=== PATIENT | female | born 1950 | race American Indian/Alaskan Native ===

== ENCOUNTER 2016-12-16 06:31 | Observation (INO) | payer MEDICARE ==
--- NOTE | 2016-12-11 10:01 | Anesthesia Consultation ---
Anesthesia Consult and Med Hx Date of service: 12/16/06 - Airway Anesthetic Teeth Evaluation: Good, Bridges ROM Head & Neck: Adequate Mental/Hyoid Distance: Adequate Mallampati Class: Class III Intubation Access Assessment: Possibly Difficult - Pulmonary Exam CTA: Yes - Cardiac Exam Cardiac Exam: RRR - Pre-Operative Health Status ASA Pre-Surgery Classification: ASA3 Proposed Anesthetic Plan: Epidural, Spinal Nerve Block: Femoral - Pulmonary Hx Smoking: Yes (STOPPED 2002 -02/16 PPD X 20 YRS) Hx Sleep Apnea: Yes (DX SLEEP APNEA WITH CPAP USE.) - Cardiovascular System Hx Hypertension: Yes (2003) Hx Cardia Arrhythmia: Yes (Palpitations, enlarged heart from HTN) - Central Nervous System Hx Psychiatric Problems: Yes (Anxiety/Depression) - Hematic Hx Anemia: Yes (NOT RECENT) - Other Systems Hx Cancer: No Hx Obesity: Yes
[2016-12-11 10:11] LABS: Basophils % (Auto) 0.6 % (0.0-1.8); Eosinophils # (Auto) 0.3 K/mm3 (0.0-0.4); Eosinophils % (Auto) 3.6 % (0.0-4.3); Hematocrit 40.1 % (30.3-42.9); Hemoglobin 13.1 gm/dl (10.1-14.3); Lymphocytes # (Auto) 2.4 K/mm3 (1.2-5.4); Lymphocytes % (Auto) 33.2 % (13.4-35.0); Mean Corpuscular HGB Conc 33 % (30-34); Mean Corpuscular Hemoglobin 29 pg (28-32); Mean Corpuscular Volume 90 fl (79-97); Monocytes # (Auto) 0.5 K/mm3 (0.0-0.8); Monocytes % (Auto) 7.6 % (0.0-7.3); Platelet Count 275 K/mm3 (140-440); Red Blood Count 4.46 M/mm3 (3.65-5.03); Red Cell Distribution Width 13.3 % (13.2-15.2)
[2016-12-11 10:21] LABS: Bacteria,Urine 1+ /HPF (Negative); Bilirubin,Urine NEG (Negative); Blood,Urine NEG (Negative); Color,Urine Yellow (Yellow); INR 0.94 (0.87-1.13); Mucus,Urine FEW /HPF; Nitrite,Urine NEG (Negative); Protein,Urine <15 mg/dL mg/dL (Negative); Urobilinogen,Urine < 2.0 mg/dL (<2.0)
[2016-12-11 10:22] LABS: Partial Thromboplastin Time 30.8 Sec. (24.2-36.6)
[2016-12-11 10:26] LABS: Alanine Aminotransferase 9 units/L (7-56); Albumin 4.6 g/dL (3.9-5); BUN/Creatinine Ratio 21; Blood Urea Nitrogen 15 mg/dL (7-17); Calcium 9.1 mg/dL (8.4-10.2); Hemolysis Index 8
[~2016-12-16 06:31] MED LIST: MARCAINE 0.5% INFILTRATI ONE; NACL 0.9% 1000 ML 1,000 ML IV SCH; NEOSPORIN GU IR ONE; VERSED IV NR
[2016-12-16] MEDS ORDERED: NACL BACTERIOSTATIC INFILTRATI ONE (06:54)
[2016-12-16] MEDS ORDERED: ANCEF/STERILE WATER 2 GM/20 ML IV NR (07:00)
[2016-12-16] MEDS ORDERED: MARCAINE 0.5% 30 ML INFILTRATI ONE ×2 (07:13→08:08)
[2016-12-16] MEDS ORDERED: NEOSPORIN GU IR ONE ×2 (07:14→11:13)
[2016-12-16] MEDS ORDERED: DECADRON ONE ×2 (07:42→08:08)
[2016-12-16] MEDS ORDERED: SUBLIMAZE ONE (07:42)
[2016-12-16] MEDS ORDERED: DIPRIVAN 10 MG/ML IV ONE (07:42)
[2016-12-16] MEDS ORDERED: XYLOCAINE MPF 2% ONE (07:42)
[2016-12-16] MEDS ORDERED: ZOFRAN ONE (07:42)
[2016-12-16] MEDS ORDERED: CLONIDINE 1,000 MCG/10 ML VIAL EP ONE (08:08)
[2016-12-16] MEDS ORDERED: XYLOCAINE 1% 20 mL ONE (08:13)
[2016-12-16] MEDS ORDERED: TRANEXAMIC ACID ONE (08:50)
[2016-12-16] MEDS ORDERED: NACL 0.9% 100 ML ONE ×2 (08:51→08:52)
[2016-12-16] MEDS ORDERED: ePHEDrine SULFATE ONE (09:39)
[2016-12-16] MEDS ORDERED: NEO SYNEPHRINE/NS Syringe(OR USE) IV ONE (10:00)
[2016-12-16] MEDS ORDERED: NACL 0.9% 1000 ML 1,000 ML ONE (10:19)
[2016-12-16] MEDS ORDERED: MARCAINE 0.5% INFILTRATI ONE (11:17)
[2016-12-16] MEDS ORDERED: DILAUDID ONE (12:10)
[2016-12-16] MEDS: DILAUDID IV PRN ×6 (12:35→21:33)
[2016-12-16] MEDS ORDERED: ZOFRAN IV PRN (12:40)
[2016-12-16] MEDS ORDERED: AMBIEN PO PRN (12:40)
[2016-12-16] MEDS ORDERED: SODIUM CHLORIDE FLUSH SYRINGE 10 ML IV PRN (12:40)
[2016-12-16] MEDS ORDERED: TYLENOL PO PRN (12:40)
--- NOTE | 2016-12-16 13:51 | Operative Report ---
PREOPERATIVE DIAGNOSES: Right knee with severe degenerative joint disease with lateral compartment collapse deficiency and deformity. POSTOPERATIVE DIAGNOSES: Right knee with severe degenerative joint disease with lateral compartment collapse deficiency and deformity. PROCEDURE PERFORMED: Right total knee replacement - complex utilizing [employer] Triathlon system with cemented size 3 femur, cemented size 4 tibia, 11 mm polyethylene insert, nonresurfaced patella, 7-degree valgus cut with 8 mm distal femoral resection. SURGEON: Nikolay Stark M.D. MANAGER VALUATION: Lazaro Olson M.D. ANESTHESIA: General. ESTIMATED BLOOD LOSS: Minimal. COMPLICATIONS: None. DESCRIPTION OF PROCEDURE: The patient underwent successful induction of anesthesia. Lower extremity was then prepped and draped in usual fashion. Antibiotics and tranexamic acid were pre-administered and she was given an adductor block preoperatively as well. Lower extremity was exsanguinated and tourniquet inflated. A standard midline incision was utilized with medial trivector arthrotomy. Appropriate exposure of the joint was carried out with a midline incision and trivector arthrotomy. The retrosurface was relatively well preserved. Significant scarring was noted tricompartmentally and limited synovectomy was performed to alleviate this. It was not felt resurfacing was required. Attention was turned to the tibiofemoral joint with marked collapse noted laterally including the posterolateral condyle. The intramedullary hank introduced to the femur and standard cuts made. There was some deficiency on the chamfer but otherwise the bone was relatively appropriate but a cemented prosthesis was selected as a result of this. The attention was turned to the tibia with the intramedullary hank introduced with the ACL resected. She had deficiency laterally again. With the standard cuts were made. The gaps were appropriately then balanced meticulously. All excess scar tissue was removed. PCL was preserved. Trial reduction demonstrated full range of motion and excellent stability in flexion and extension with the size implants noted. The wounds were thoroughly irrigated and the implants cemented in place. Again, excellent stability noted, full range of motion on the table with the cemented implants. This was a complex procedure given the extent of her deformity extremely well managed with the prosthesis noted. She had excellent alignment and stability. The wounds were once again irrigated. The arthrotomy reapproximated with Ethibond sutures followed by Vicryl and Monocryl for the subcutaneous tissue and a sterile island dressing applied. The patient was taken to the recovery room in satisfactory condition having tolerated the procedure well. Tourniquet was released prior to wound closure. No significant bleeding encountered. JOB# [id number] RDP/NTS
[2016-12-16] MEDS: ANCEF/NS 1 GM/50 ML 1 GM/50 ML BAG IV SCH ×2 (15:57→22:46)
--- NOTE | 2016-12-16 19:59 | Consultation ---
History of Present Illness - Reason for Consult Consult date: 12/16/16 medical management Requesting physician: LAN SOSA - History of Present Illness History of present illness:65-year-old -Mauritian female with past medical history of hypertension, degenerative joint disease and vitamin D deficiency admitted for right total knee arthroplasty. Patient had the procedure this morning. Postop patient doing very well. No complications. Eating by herself. Pain is well controlled. No shortness of breath. No palpitations. Review of System: Constitutional: no fever, no chills, no weight loss Ears, eyes, nose, mouth and throat: no nasal congestion, no nasal discharge, no sinus pressure, no vision change, no red eye. Neck: No neck pain or rigidity. Cardiovascular: No chest pain, no orthopnea, no palpitations, no leg swelling Respiratory: No shortness of breath, no cough, no congestion, no wheezing Gastrointestinal: no abdominal pain, no nausea, no vomiting Genitourinary : no dysuria, no hematuria Musculoskeletal: no joint swelling or muscle ache Integumentary: no rash, no pruritis Neurological: no parathesias, no numbness, no tingling Endocrine: no cold or heat intolerance, no polyuria or polydipsia Hematologic/Lymphatic: no easy bruising, no easy bleeding, no gland swelling Allergic/Immunologic: no urticaria, no angioedema. Past History Past Medical History: arthritis, hypertension, other (Y Merlin D deficiency, depression) Past Surgical History: total knee replacement Social history: no significant social history, lives with family, full code Family history: hypertension Medications and Allergies Allergies Allergy/AdvReac Type Severity Reaction Status Date / Time latex Allergy Swelling Verified 10/22/16 10:41 peanut Allergy Rash Verified 10/20/16 17:08 Beef Containing Products AdvReac Diarrhea Verified 10/20/16 17:08 Home Medications Medication Instructions Recorded Confirmed Last Taken Type Calcium Carbonate [Calcium] 1,500 mg PO DAILY 10/22/16 12/16/16 10/21/16 09:00 History Carvedilol [Coreg] 6.25 mg PO BID 10/22/16 12/16/16 12/16/16 04:30 History Celecoxib [celeBREX] 200 mg PO BID 10/22/16 12/16/16 12/16/16 04:30 History Cholecalciferol Vit D3 [Vitamin D3] 1,000 unit PO QDAY 10/22/16 12/16/16 09:00 History Desipramine HCl [Norpramin] 25 mg PO PRN PRN 10/22/16 12/08/16 10/14/16 09:00 History Multivit-Minerals/Folic Acid 80 mcg PO DAILY 10/22/16 12/08/16 10/21/16 09:00 History [Centrum Multigummies] amLODIPine [Norvasc] 10 mg PO BID 10/22/16 12/16/16 12/16/16 04:30 History Active Meds: Active Medications Acetaminophen (Tylenol) 650 mg PO Q4H PRN PRN Reason: Pain MILD(1-3)/Fever >100.5/AMBROSIO Aspirin (Baby Aspirin) 162 mg PO QDAY SOURAV Cefazolin Sodium (Ancef/Sterile Water 2 Gm/20 Ml) 2 gm IV PREOP NR Stop: 12/16/16 23:59 Celecoxib (Celebrex) 200 mg PO BID SOURAV Hydromorphone HCl (Dilaudid) 0.5 mg IV Q3H PRN PRN Reason: Pain , Severe (7-10) Last Admin: 12/16/16 15:57 Dose: 0.5 mg Sodium Chloride (Nacl 0.9% 1000 Ml) 1,000 mls @ 75 mls/hr IV DIRECT SOURAV Last Admin: 12/16/16 06:55 Dose: 75 mls/hr Cefazolin Sodium (Ancef/Ns 1 Gm/50 Ml) 1 gm in 50 mls @ 100 mls/hr IV Q8H SOURAV Stop: 12/16/16 22:29 Last Admin: 12/16/16 15:57 Dose: 100 mls/hr Sodium Chloride (Nacl 0.9% 1000 Ml) 1,000 mls @ 100 mls/hr IV DIRECT SOURAV Midazolam HCl (Versed) 2 mg IV PREOP NR Stop: 12/16/16 23:59 Last Admin: 12/16/16 08:07 Dose: 2 mg Multivitamins (Theragran Tab) 1 each PO QDAY SOURAV Ondansetron HCl (Zofran) 4 mg IV Q8H PRN PRN Reason: Nausea And Vomiting Oxycodone/Acetaminophen (Percocet 5/325) 2 tab PO Q6H PRN PRN Reason: Pain, Moderate (4-6) Sodium Chloride (Sodium Chloride Flush Syringe 10 Ml) 10 ml IV PRN PRN PRN Reason: LINE FLUSH Zolpidem Tartrate (Ambien) 5 mg PO QHS PRN PRN Reason: Sleep Review of Systems All systems: negative Exam - Physical Exam Narrative exam: Lying in bed comfortably - Constitutional Vitals: Temp Pulse Resp BP Pulse Ox 98.3 F 86 20 138/55 97 12/16/16 19:38 12/16/16 19:38 12/16/16 19:38 12/16/16 19:38 12/16/16 19:38 General appearance: Present: no acute distress, well-nourished - EENT Eyes: Present: PERRL ENT: hearing intact, clear oral mucosa - Neck Neck: Present: supple, normal ROM - Respiratory Respiratory effort: normal Respiratory: bilateral: CTA - Cardiovascular Heart rate: 80 Rhythm: regular Heart Sounds: Present: S1 & S2. Absent: rub, click - Extremities Extremities: no ischemia, pulses intact, pulses symmetrical, No edema Peripheral Pulses: within normal limits - Abdominal General gastrointestinal: Present: soft, non-tender, non-distended, normal bowel sounds Female genitourinary: Present: normal - Rectal Rectal Exam: deferred - Integumentary Integumentary: Present: clear, warm, dry - Musculoskeletal Musculoskeletal: gait normal, strength equal bilaterally - Psychiatric Psychiatric: appropriate mood/affect, intact judgment & insight - Neurologic Neurologic: CNII-XII intact, moves all extremities - Allied Health Allied health notes reviewed: nursing, case management Results - Labs CBC & Chem 7: 12/11/16 09:27 12/11/16 09:27 Assessment and Plan - Patient Problems (1) Hx of total knee arthroplasty Current Visit: Yes Status: Acute Qualifiers: Laterality: right Qualified Code(s): Z96.651 - Presence of right artificial knee joint Plan to address problem: postop patient doing very well. No complications. (2) Hypertension Current Visit: Yes Status: Chronic Qualifiers: Hypertension type: essential hypertension Qualified Code(s): I10 - Essential (primary) hypertension Plan to address problem: continue Coreg and amlodipine. (3) Vitamin D deficiency Current Visit: Yes Status: Chronic Plan to address problem: continue vitamin D (4) Depression Current Visit: Yes Status: Chronic Qualifiers: Depression Type: unspecified Major depression recurrence: M Active/ Remission status: A Major depression episode severity: M Psychotic features : P Trimester: T Qualified Code(s): F32.9 - Major depressive disorder, single episode, unspecified Plan to address problem: continue [id number] mg by mouth when necessary (5) DVT prophylaxis Current Visit: Yes Status: Acute Plan to address problem: SCDs only
[2016-12-16] MEDS ORDERED: DESIPRAMINE HCL 25 MG PO PRN (20:00)
[2016-12-16] MEDS ORDERED: CALCIUM CARBONATE 1500 MG PO SCH (20:00)
[2016-12-16] MEDS: NACL 0.9% 1000 ML 1,000 ML IV SCH (21:32)
[2016-12-16] MEDS: COREG PO SCH (21:36)
[2016-12-16] MEDS ORDERED: NORVASC PO SCH (22:00)
[2016-12-17] MEDS: NORVASC PO SCH (09:00)
[2016-12-17] MEDS: DILAUDID IV PRN (09:39)
--- NOTE | 2016-12-17 10:14 | Progress Note ---
Assessment and Plan Assessment and plan: 65-year-old -Brazilian female with past medical history of hypertension, degenerative joint disease and vitamin D deficiency admitted for right total knee arthroplasty. Patient had the procedure this morning. Postop patient doing very well. No complications. Eating by herself. Pain is well controlled. No shortness of breath. No palpitations. DJD * s/p RIGHT total knee arthroplasty, surgery following. no new complaints. Pt/OT * Pain control Hypertension * Continue Coreg and amlodipine. Vitamin D deficiency * Continue Vitamin D Depression * continue [id number] mg by mouth when necessary DVT Gi prophy * SCD * Plan discussed in detail with the patient and she verablized understanding. History Interval history: Patient seen examined in no acute distress. had therapy today. Hospitalist Physical - Physical exam Narrative exam: General appearance: Present: no acute distress, well-nourished - EENT Eyes: Present: PERRL ENT: hearing intact, clear oral mucosa - Neck Neck: Present: supple, normal ROM - Respiratory Respiratory effort: normal Respiratory: bilateral: CTA - Cardiovascular Heart rate: 80 Rhythm: regular Heart Sounds: Present: S1 & S2. Absent: rub, click - Extremities Extremities: no ischemia, pulses intact, pulses symmetrical, No edema Peripheral Pulses: within normal limits - Abdominal General gastrointestinal: Present: soft, non-tender, non-distended, normal bowel sounds Female genitourinary: Present: normal - Rectal Rectal Exam: deferred - Integumentary Integumentary: Present: clear, warm, dry - Musculoskeletal Musculoskeletal: gait not assessed, dressing at surgical site on right kneel, strength equal bilaterally - Psychiatric Psychiatric: appropriate mood/affect, intact judgment & insight - Neurologic Neurologic: CNII-XII intact, moves all extremities - Allied Health Allied health notes reviewed: nursing, case management - Constitutional Vitals: Temp Pulse Resp BP Pulse Ox 98.0 F 67 18 135/55 97 12/17/16 07:23 12/17/16 07:23 12/17/16 09:39 12/17/16 07:23 12/17/16 10:00 General appearance: Present: no acute distress, well-nourished Results - Labs CBC & Chem 7: 12/11/16 09:27 12/11/16 09:27 Labs: Laboratory Last Values WBC 7.2 K/mm3 (4.5-11.0) 12/11/16 09: RBC 4.46 M/mm3 (3.65-5.03) 12/11/16 09: Hgb 13.1 gm/dl (10.1-14.3) 12/11/16: Hct 40.1 % (30.3-42.9) 12/11/16: MCV 90 fl (79-97) 12/11/16: MCH 29 pg (28-32) 12/11/16: MCHC 33 % (30-34) 12/11/16: RDW 13.3 % (13.2-15.2) 12/11/16: Plt Count 275 K/mm3 (140-440) 12/11/16: Lymph % (Auto) 33.2 % (13.4-35.0) 12/11/16: [place] % (Auto) 7.6 % (0.0-7.3) H 12/11/16: Eos % (Auto) 3.6 % (0.0-4.3) 12/11/16 09: Baso % (Auto) 0.6 % (0.0-1.8) 12/11/16: Lymph # 2.4 K/mm3 (1.2-5.4) 12/11/16: [place] # 0.5 K/mm3 (0.0-0.8) 12/11/16: Eos # 0.3 K/mm3 (0.0-0.4) 12/11/16: Baso # 0.0 K/mm3 (0.0-0.1) 12/11/16 09:27 Seg Neutrophils % 55.0 % (40.0-70.0) 12/11/16: Seg Neutrophils # 4.0 K/mm3 (1.8-7.7) 12/11/16 09: PT 13.0 Sec. (12.2-14.9) 12/11/16 09:27 INR 0.94 (0.87-1.13) 12/11/16: APTT 30.8 Sec. (24.2-36.6) 12/11/16 09: Sodium 141 mmol/L (137-145) 12/11/16 09:27 Potassium 4.4 mmol/L (3.6-5.0) 12/11/16 09:27 Chloride 103.2 mmol/L (98-107) 12/11/16 09:27 Carbon Dioxide 23 mmol/L (22-30) 12/11/16 09:27 Anion Gap 19 mmol/L 12/11/16 09:27 BUN 15 mg/dL (7-17) 12/11/16 09:27 Creatinine 0.7 mg/dL (0.7-1.2) 12/11/16 09:27 Estimated GFR > 60 ml/min 12/11/16 09:27 BUN/Creatinine Ratio 21 % 12/11/16 09:27 Glucose 118 mg/dL (65-100) H 12/11/16 09:27 Calcium 9.1 mg/dL (8.4-10.2) 12/11/16 09:27 Total Bilirubin 0.20 mg/dL (0.1-1.2) 12/11/16 09:27 AST 17 units/L (5-40) 12/11/16 09:27 ALT 9 units/L (7-56) 12/11/16 09:27 Alkaline Phosphatase 150 units/L (35-129) H 12/11/16 09:27 Total Protein 7.4 g/dL (6.3-8.2) 12/11/16 09:27 Albumin 4.6 g/dL (3.9-5) 12/11/16 09:27 Albumin/Globulin Ratio 1.6 % 12/11/16 09:27 Urine Color Yellow (Yellow) 12/11/16 09:27 Urine Turbidity Clear (Clear) 12/11/16 09:27 Urine pH 5.0 (5.0-7.0) 12/11/16 09:27 Ur Specific [place] 1.014 (1.003-1.030) 12/11/16 09:27 Urine Protein <15 mg/dl mg/dL (Negative) 12/11/16 09:27 Urine Glucose (UA) Neg mg/dL (Negative) 12/11/16 09:27 Urine Ketones Neg mg/dL (Negative) 12/11/16 09:27 Urine Blood Neg (Negative) 12/11/16 09: Urine Nitrite Neg (Negative) 10/27/17 09:27 Urine Bilirubin Neg (Negative) 12/11/16 09:27 Urine Urobilinogen < 2.0 mg/dL (<2.0) 12/11/16 09:27 Ur Leukocyte Esterase Neg (Negative) 12/11/16 09:27 Urine WBC (Auto) 1.0 /HPF (0.0-6.0) 12/11/16 09:27 Urine RBC (Auto) 3.0 /HPF (0.0-6.0) 12/11/16 09:27 U Epithel Cells (Auto) 4.0 /HPF (0-13.0) 12/11/16 09:27 Urine Bacteria (Auto) 1+ /HPF (Negative) 12/11/16 09:27 Urine Mucus Few /HPF 12/11/16 09:27
[2016-12-17] MEDS: VITAMIN D3 PO SCH (10:17)
[2016-12-17] MEDS: BABY ASPIRIN PO SCH (10:17)
[2016-12-17] MEDS: TUMS PO SCH (10:17)
[2016-12-17] MEDS: COREG PO SCH ×2 (10:19→21:29)
[2016-12-17] MEDS: THERAGRAN Tab PO SCH (10:19)
--- NOTE | 2016-12-17 12:02 | Progress Note ---
Subjective Date of service: 12/17/16 Interval history: 1st POD after right total knee replacement Patient is in the bed, comfortable. Pain is well controlled with pain meds. Ambulated well with the help of physical therapist. No nausea or vomiting. No anesthesia complications Objective - Constitutional Vitals: Vital Signs - 12hr 12/17/16 12/17/16 12/17/16 03:55 07:23 09:39 Temperature 98.4 F 98.0 F Pulse Rate 74 67 Respiratory 20 20 18 Rate Blood Pressure 135/59 135/55 O2 Sat by Pulse 94 97 Oximetry 12/17/16 12/17/16 10:00 10:17 Temperature Pulse Rate Respiratory 20 Rate Blood Pressure O2 Sat by Pulse 97 Oximetry - Labs CBC & Chem 7: 12/11/16 09:27 12/11/16 09:27
--- NOTE | 2016-12-17 12:38 | Progress Note ---
Subjective Date of service: 12/17/16 Interval history: VSS Pain well controlled NVI Calf supple Dssg dry Ambulates with PT Stable Cont PT, med mgmt, DC tomorrow Objective - Constitutional Vitals: Vital Signs - 12hr 12/17/16 12/17/16 12/17/16 03:55 07:23 09:39 Temperature 98.4 F 98.0 F Pulse Rate 74 67 Respiratory 20 20 18 Rate Blood Pressure 135/59 135/55 O2 Sat by Pulse 94 97 Oximetry 12/17/16 12/17/16 10:00 10:17 Temperature Pulse Rate Respiratory 20 Rate Blood Pressure O2 Sat by Pulse 97 Oximetry - Labs CBC & Chem 7: 12/11/16 09:27 12/11/16 09:27
[2016-12-17] MEDS: NACL 0.9% 1000 ML 1,000 ML IV SCH (17:25)
[2016-12-17] MEDS: PERCOCET 5/325 PO PRN (19:26)
[2016-12-18] MEDS: PERCOCET 5/325 PO PRN ×2 (01:44→15:43)
[2016-12-18] MEDS: NORVASC PO SCH (09:35)
[2016-12-18] MEDS: COREG PO SCH (09:35)
[2016-12-18] MEDS: TUMS PO SCH (09:37)
[2016-12-18] MEDS: THERAGRAN Tab PO SCH (09:37)
[2016-12-18] MEDS: VITAMIN D3 PO SCH (09:38)
[2016-12-18] MEDS: BABY ASPIRIN PO SCH (09:38)
[2016-12-18 12:24] VITALS: BP 182/67
--- NOTE | 2016-12-18 14:41 | Discharge Summary ---
Providers - Providers Date of Admission: 12/16/16 06:31 Attending physician: LAN SOSA 12/16/16 12:40 Consult to Case Management [CONS] Routine Services Needed at Discharge: Home Health Services Notified:: [employer] Consult to Physician [CONS] Routine Consulting Provider: ANNI VALLE Reason For Exam: primary care Place consult to:: DR. VALLE Notified:: DR. VALLE Was contact made?: Yes If yes, spoke with:: DR. VALLE Time called:: 14:35 Comment:: CONSULT COMPLETED - LOUISA 12/16/16 12:44 Physical Therapy Evaluation and Treat [CONS] Routine Comment: Reason For Exam: total knee Primary care physician: FIELD SERVICE MANAGER Hospitalization Reason for admission: Right knee DJD Condition: Stable Hospital course: 65-year-old -Maldivian female with past medical history of hypertension, degenerative joint disease and vitamin D deficiency admitted for right total knee arthroplasty. Patient had the procedure this morning. Postop patient doing very well. No complications. Eating by herself. Pain is well controlled. No shortness of breath. No palpitations. DJD * s/p RIGHT total knee arthroplasty, Doing well, was seen by surgery and stable for discharge today * Follow up with surgeon * Pain control BURKE * Continue BIPAP HS Hypertension * Continue Coreg and amlodipine. Vitamin D deficiency * Continue Vitamin D Depression * continue [id number] mg by mouth when necessary Disposition: DC/TX-06 HOME UNDER HOME [facility] Time spent for discharge: 35 mins Core Measure Documentation - Palliative Care Palliative Care/ Comfort Measures: Not Applicable - Core Measures Any of the following diagnoses?: none - VTE Discharge Requirements Deep Vein Thrombosis/Pulmonary Embolism Present on Admission: No Exam - Physical Exam Narrative exam: General appearance: Present: no acute distress, well-nourished - EENT Eyes: Present: PERRL ENT: hearing intact, clear oral mucosa - Neck Neck: Present: supple, normal ROM - Respiratory Respiratory effort: normal Respiratory: bilateral: CTA - Cardiovascular Heart rate: 80 Rhythm: regular Heart Sounds: Present: S1 & S2. Absent: rub, click - Extremities Extremities: no ischemia, pulses intact, pulses symmetrical, No edema Peripheral Pulses: within normal limits - Abdominal General gastrointestinal: Present: soft, non-tender, non-distended, normal bowel sounds Female genitourinary: Present: normal - Rectal Rectal Exam: deferred - Integumentary Integumentary: Present: clear, warm, dry - Musculoskeletal Musculoskeletal: gait not assessed, dressing at surgical site on right kneel, strength equal bilaterally - Psychiatric Psychiatric: appropriate mood/affect, intact judgment & insight - Neurologic Neurologic: CNII-XII intact, moves all extremities - Allied Health Allied health notes reviewed: nursing, case management - Constitutional Vitals: Temp Pulse Resp BP Pulse Ox 98.5 F 80 18 182/67 95 12/18/16 12:00 12/18/16 12:00 12/18/16 12:00 12/18/16 12:00 12/18/16 12:00 Plan Activity: advance as tolerated, fall precautions Diet: low fat Special Instructions: record daily weights, record daily BP diary Durable Medical Equipment Needed Upon Discharge: Walker-Rolling, Bedside Commode Follow up with: PRIMARY CARE, [Primary Care Provider] - 7 Days LAN SOSA MD [Staff Physician] - 7 Days Prescriptions: Aspirin [Aspirin BABY CHEW TAB] 162 mg PO QDAY #30 tab.chew Docusate Sodium [Colace] 100 mg PO BID PRN #30 capsule PRN Reason: Constipation oxyCODONE /ACETAMINOPHEN [Percocet 5/325 mg] 2 tab PO Q6H PRN #30 tablet PRN Reason: Pain, Moderate (4-6)
== END 2016-12-18 16:00 | disposition home health service (06) ==
LOC: INTOOBSV 06:31 → 3A 06:31 → 3B-SURG 13:38
PROVIDERS: ADMIT Orthopaedic Surgery; ATTEND Orthopaedic Surgery
DX: M17.11 Unilateral primary osteoarthritis, right knee (principal); I10 Essential (primary) hypertension; E55.9 Vitamin D deficiency, unspecified; F32.9 Major depressive disorder, single episode, unspecified; G47.33 Obstructive sleep apnea (adult) (pediatric); Z88.8 Allergy status to other drugs, medicaments and biological substances; Z91.010 Allergy to peanuts; Z87.891 Personal history of nicotine dependence; Z82.49 Family history of ischemic heart disease and other diseases of the circulatory system; Z96.651 Presence of right artificial knee joint
CPT/HCPCS: 27447; 36415; 64450; 80053; 81001; 85025; 85610; 85730; 87086; 88304; 88311; 94660; 94760; 96365; 96375; 96376; 97110; 97116; 97161; 97530; 97760; C1776; G0378; G0379; G8978; G8979; J0690; J0735; J1100; J1170; J2250; J2370; J2405; J2704; J3010; J7030; 88305